=== PATIENT | female | born 2000 | race Caucasian/White ===

== ENCOUNTER 2020-09-16 16:14 | Emergency (ER) | payer OTHER ==
[~2020-09-16] VITALS: Ht 172.7 cm; Wt 90.7 kg
[2020-09-16 16:24] VITALS: Ht 172.7 cm; Wt 90.7 kg
[2020-09-16 17:38] VITALS: BP 128/68
== END 2020-09-16 17:53 | disposition home or self-care (01) ==
LOC: ED 16:14
DX: R10.9 Unspecified abdominal pain (principal)